=== PATIENT | female | born 1960 | race Caucasian/White ===

== ENCOUNTER 2017-09-20 11:12 | Emergency (ER) | payer MEDICAID ==
--- NOTE | 2017-09-20 11:18 | EDPHY ---
H & P Time Seen by Provider: 09/20/17 11:17 HPI/ROS: CHIEF COMPLAINT: Court ordered mental health evaluation HISTORY OF PRESENT ILLNESS: Patient is brought in by police after a court order to have her get a mental health evaluation dated yesterday. From the petitioner who was her apparently she has a history of depression and bipolar disorder. She is not currently taking any of her medications. She has a history of alcoholism. She also has a history of attempted suicide by"taking pills, hanging, and using a loaded gun, although she was unable to disengage the safety lock." Apparently she has been"in an extreme rage for approximately 1 week"and is escalating and paranoid. Patient says she is fine and denies any psychiatric or medical complaints. REVIEW OF SYSTEMS: Eye: no change in vision ENT: no sore throat Cardiac: no chest pain or syncope Pulmonary: no cough or SOB Abdomen: no vomiting, diarrhea, abdominal pain Musculoskeletal: no back pain Skin: no rash Neuro: no headache Constitutional: no fever : no urinary symptoms A comprehensive 10 point review of systems is otherwise negative aside from elements mentioned in the history of present illness. PAST MEDICAL HISTORY: Bipolar disorder and depression Social history: History of alcohol use per the petition General Appearance: Alert and conversant, cooperative. Eyes: No scleral icterus. ENT, Mouth: Normal mucous membranes. Respiratory: Normal respiratory effort, breath sounds equal, lungs are clear to auscultation. Cardiovascular: Regular rate and rhythm. Gastrointestinal: Abdomen is soft and non tender. Neurological: Alert, face symmetric, normal motor and sensory in extremities. Ambulatory without ataxia. Speech is fluent. Skin: No laceration Musculoskeletal: Normal range of movement of the neck Psychiatric: Currently cooperative and not agitated. Emergency Department course/MDM: Screening labs and urine, plan for mental health evaluation. Arrives for a court ordered mental health evaluation with paperwork by police. Placed on a mental health hold by myself in conjunction with psychiatric machine biller for grave disability as noted in the court order. 1308: signed out to [place] with psych placement pending. (Moisés Batres) Constitutional: Initial Vital Signs Temperature (C) 36.8 C 09/20/17 11:15 Heart Rate 93 09/20/17 11:15 Respiratory Rate 20 09/20/17 11:15 O2 Sat (%) 95 09/20/17 11:15 O2 Delivery Mode Room Air Allergies/Adverse Reactions: No Known Allergies Allergy (Verified 09/20/17 11:26) Home Medications: Medication Instructions Recorded NK [No Known Home Meds] 09/20/17 Medical Decision Making ED Course/Re-evaluation: I took over care of this patient at 8:00 p.m.. The patient is on an M1 hold for bipolar disorder, noncompliance with psychiatric medications and suicidal ideation. Behavioral Health is currently searching for placement. 11:00 p.m., the patient remains on an M1 hold. Behavioral Health continues to search for placement. Care turned over to Dr. Maciej Reaves at this time. ( Elfego Calix) Differential Diagnosis: Differential considered including but not limited to drug use, alcohol use, metabolic, bipolar disorder. (Moisés Batres) Other Provider: 2300 care assumed by me from Dr. Calix pending placement. Patient has been accepted to [facility] by Dr. Prado, I have completed the EMTALA (Maciej Reaves) - Data Points Laboratory Results: Laboratory Results 09/20/17 11:45 09/20/17 11:45 Medications Given: Discontinued Medications Lorazepam (Ativan) 1 mg PO EDNOW ONE Stop: 09/20/17 19:34 Last Admin: 09/20/17 19:36 Dose: 1 mg Departure - Departure Disposition: Other Psych, Not [facility] Clinical Impression: Suicidal ideation Bipolar disorder Qualifiers: Active/Remission status: currently active Current bipolar episode type: manic Current episode severity: moderate Qualified Code(s): F31.12 - Bipolar disorder , current episode manic without psychotic features, moderate Condition: Good Referrals: NONE *PRIMARY CARE P,. [Primary Care Provider] - As per Instructions
[2017-09-20 11:53] LABS: PLATELET COUNT 323 10^3/uL (150-400)
[2017-09-20] MEDS ORDERED: LORazepam 1 MG TAB ONE (19:32)
[2017-09-20] MEDS ORDERED: LORazepam 1 MG TAB PO ONE (19:33)
--- NOTE | 2017-09-21 00:05 | CPEKG ---
Heart Rate: 62 RR Interval: 968 P-R Interval: 160 QRSD Interval: 92 QT Interval: 460 QTC Interval: 468 P Parkman: 50 QRS Parkman: 7 T Wave Parkman: 45 EKG Severity - NORMAL ECG - EKG Impression: SINUS RHYTHM Electronically Signed By: Maciej Reaves 21-Sep-2017 07:33:55
[2017-09-21 02:11] VITALS: BP 112/73
== END 2017-09-21 02:41 ==
DX: R45.851 Suicidal ideations (principal); F31.12 Bipolar disorder, current episode manic without psychotic features, moderate
CPT/HCPCS: 80305; G0480

== ENCOUNTER → 2017-10-16 | Outpatient (CLI) | payer MEDICAID | LOC: FCPNEURO 21:00 | PROVIDERS: ATTEND Internal Medicine Sleep Medicine | DX: G47.33 Obstructive sleep apnea (adult) (pediatric) (principal); G47.61 Periodic limb movement disorder ==